=== PATIENT | female | born 1990 | race Caucasian/White ===

== ENCOUNTER 2017-11-21 14:39 | Inpatient (IN) | payer OTHER ==
[~2017-11-21] VITALS: Ht 167.6 cm; Wt 80.7 kg
[~2017-11-21 14:39] MED LIST: FOLIC ACID1 MG; PRENATABS RX TA1 TAB
== END 2017-12-14 11:24 | DRG 775 ==
LOC: LDR 12-12 11:15 → OB/GYN 12-12 11:15 → SURG 12-19 12:15
PROC: 0KQM0ZZ Repair Perineum Muscle, Open Approach (ICD-10-PCS; principal; 2017-12-12)
PROC: 10E0XZZ Delivery of Products of Conception, External Approach (ICD-10-PCS; 2017-12-12)
PROC: 4A1HXCZ Monitoring of Products of Conception, Cardiac Rate, External Approach (ICD-10-PCS; 2017-12-12)
PROC: 4A033R1 Measurement of Arterial Saturation, Peripheral, Percutaneous Approach (ICD-10-PCS; 2017-12-12)
DX: O70.1 Second degree perineal laceration during delivery (principal); Z37.0 Single live birth; Z3A.38 38 weeks gestation of pregnancy